=== PATIENT | female | born 1990 | race African-American/Black ===

== ENCOUNTER 2018-01-18 08:54 | Emergency (ER) | payer OTHER ==
[~2018-01-18] VITALS: Ht 154.9 cm; Wt 56.7 kg
[2018-01-18 10:40] LABS: ABSOLUTE BASOPHIL COUNT 0.1 /CUMM (0.0-0.2); ABSOLUTE EOSINOPHIL COUNT 0.2 /CUMM (0.0-0.7); ABSOLUTE GRANULOCYTE CT 2.8 /CUMM (1.4-6.5); ABSOLUTE LYMPH COUNT 2.1 /CUMM (1.2-3.4); ABSOLUTE MONOCYTE COUNT 0.4 /CUMM (0.10-0.60); BASOPHIL % 1.3 % (0.0-2.0); EOSINOPHIL % 3.2 % (0-5); GRANULOCYTE % 50.8 % (42.2-75.2); HEMATOCRIT 36.3 % (37-47); MEAN CORPUSCULAR HGB 26.2 PG (27.0-31.0); MEAN CORPUSCULAR HGB CONC 32.9 G/DL (33.0-37.0); MEAN CORPUSCULAR VOLUME 79.7 FL (81.0-99.0); MEAN PLATELET VOLUME 9.8 FL (7.4-10.4); RBC DISTRIBUTION WIDTH 14.4 % (11.5-14.5); RED BLOOD CELL CT 4.56 /CUMM (4.20-5.40); WHITE BLOOD CELL COUNT 5.5 /CUMM (4.8-10.8)
[2018-01-18 11:00] LABS: PLATELET COUNT 142 /CUMM (130-400)
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
[2018-01-18] MEDS ORDERED: WELLBUTRIN XL150 M2 PO (12:05)
[2018-01-18] MEDS ORDERED: PROPRANOLOL HCL20 M1 PO (12:05)
[2018-01-18] MEDS ORDERED: FLOVENT HFA10.6 GM INH (12:06)
[2018-01-18] MEDS ORDERED: PROAIR HFA8.5 GM INH (12:06)
[2018-01-18] MEDS ORDERED: MEDICAL MARIJUANA (12:08)
[2018-01-18] MEDS ORDERED: KETOROLAC TROME10 M1 PO (13:08)
== END 2018-01-18 14:00 ==
LOC: ERH 08:54
PROVIDERS: Physician Assistant
DX: N76.0 Acute vaginitis (principal)
CPT/HCPCS: 87070; 81003; 81025; 87086; 87491; 87591; 96372; J1885

== ENCOUNTER 2018-03-15 22:33 | Emergency (ER) | payer OTHER ==
[~2018-03-15] VITALS: Ht 167.6 cm; Wt 63.5 kg
[~2018-03-15 22:33] MED LIST: AZITHROMYCIN250 M1 PO; FLOVENT HFA10.6 GM INH; KETOROLAC TROME10 M1 PO; MEDICAL MARIJUANA; NAPROXEN500 M2 PO; PROAIR HFA8.5 GM INH; PROPRANOLOL HCL20 M1 PO; PROVENTIL HFA6.7 GM INH; WELLBUTRIN XL150 M2 PO; ZOFRAN ODT4 M1 SL
[2018-03-15 22:51] LABS: ABSOLUTE BASOPHIL COUNT 0.1 /CUMM (0.0-0.2); ABSOLUTE EOSINOPHIL COUNT 0.1 /CUMM (0.0-0.7); ABSOLUTE GRANULOCYTE CT 6.4 /CUMM (1.4-6.5); ABSOLUTE LYMPH COUNT 2.4 /CUMM (1.2-3.4); ABSOLUTE MONOCYTE COUNT 0.8 /CUMM (0.10-0.60); BASOPHIL % 0.6 % (0.0-2.0); EOSINOPHIL % 1.2 % (0-5); GRANULOCYTE % 65.4 % (42.2-75.2); HEMATOCRIT 37.5 % (37-47); MEAN CORPUSCULAR HGB 25.9 PG (27.0-31.0); MEAN CORPUSCULAR VOLUME 78.3 FL (81.0-99.0); MEAN PLATELET VOLUME 9.2 FL (7.4-10.4); PLATELET COUNT 252 /CUMM (130-400); RBC DISTRIBUTION WIDTH 14.6 % (11.5-14.5); RED BLOOD CELL CT 4.79 /CUMM (4.20-5.40); WHITE BLOOD CELL COUNT 9.7 /CUMM (4.8-10.8)
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
[2018-03-16 04:41] VITALS: BP 129/87
== END 2018-03-16 04:44 ==
LOC: ERH 22:33
PROVIDERS: Physician Assistant Medical
DX: Z04.41 Encounter for examination and observation following alleged adult rape (principal); G43.909 Migraine, unspecified, not intractable, without status migrainosus; J45.909 Unspecified asthma, uncomplicated; F32.9 Major depressive disorder, single episode, unspecified; F60.3 Borderline personality disorder
CPT/HCPCS: 87070; 81003; 81025; 87491; 87591; 96372; J0456; J0696; J3101